=== PATIENT | male | born 1950 | race Caucasian/White ===

== ENCOUNTER 2019-02-28 16:28 | Observation (INO) ==
[2019-02-28 18:09] LABS: Basophils % 0.6 % (0.0-0.8); Eosinophils # 0.2 10*3/uL (0.0-0.87); Eosinophils % 2.5 % (0.00-10.9); Hematocrit 42.5 VOL% (42.0-52.0); Hemoglobin 14.1 GM/DL (14.0-18.0); Immature Granulocytes % 0.3 %; Immature Granulocytes Absolute 0.02 #; Lymphocytes # 1.4 10*3/uL (1.4-4.0); Mean Corpuscular HGB Conc 33.2 GM/DL (32-36); Mean Corpuscular Volume 97.7 FL (87-102); Mean Platelet Volume 10.2 FL (9.6-12.0); Neutrophils % 70.6 % (38.7-73.9); Platelet Count 183 T/CUMM (130-400); Red Blood Count 4.35 MC/CUMM (3.8-5.5); Red Cell Distribution Width 12.8 % (9.3-17.3); White Blood Count 7.3 T/CUMM (4-12)
[2019-02-28 18:19] LABS: PT Patient Result 11.2 SECS (9.6-12.2); Partial Thromboplastin Time 25.2 SECS (20.8-36.0)
[2019-02-28 18:32] LABS: Albumin 3.7 G/DL (3.4-5.0); Bilirubin,Total 1.3 MG/DL (0.2-1.0); Calcium 8.8 MG/DL (8.5-10.1); Osmolality,Calculated 282.4 MOS/KG (273-304)
[2019-02-28 18:56] LABS: Apearance,Urine CLEAR (Clear); Bilirubin,Urine Negative (Negative); Blood, Urine Negative (Negative); Glucose,Urine (UA) Negative (Negative); Ketones,Urine Negative (Negative); Mucus,Urine Occasional /LPF (Occasional); Nitrite,Urine Negative (Negative); Protein,Urine Negative; RBC,Urine 2 /HPF (0-4); Urine Color Straw (Yellow); Urine Urobilinogen < 2.0 EU/DL (0.2-1.0); WBC,Urine 1 /HPF (0-6)
[2019-02-28] MEDS ORDERED: LABETALOL 20 MG/4 ML SYRINGE IV PRN (19:38)
[2019-02-28] MEDS ORDERED: ACETAMINOPHEN 325 MG TABLET PO PRN (19:38)
[2019-02-28] MEDS ORDERED: ONDANSETRON 4 MG/2 ML VIAL IV PRN (19:38)
[2019-02-28] MEDS ORDERED: PNEUMOCOCCAL VACCINE (13 VALENT) 0.5 ML SYRINGE IM ONE (21:12)
[2019-02-28] MEDS ORDERED: INFLUENZA VIRUS VACCINE 0.5 ML SYRINGE IM ONE (21:12)
[2019-02-28] MEDS: ATORVASTATIN 40 MG TABLET PO SCH (21:40)
[2019-02-28 22:48] LABS: Barbiturates Screen,Urine Negative (Negative); Benzodiazepines Screen,Urine Negative (Negative); Cannabinoid Screen,Urine Negative (Negative); Opiate Screen,Urine Negative (Negative); Phencyclidine Screen,Urine Negative (Negative)
[2019-03-01 02:16] LABS: Basophils # 0.1 10*3/uL (0.0-0.2); Basophils % 0.7 % (0.0-0.8); Eosinophils # 0.2 10*3/uL (0.0-0.87); Eosinophils % 3.1 % (0.00-10.9); Hematocrit 41.9 VOL% (42.0-52.0); Hemoglobin 13.8 GM/DL (14.0-18.0); Immature Granulocytes % 0.1 %; Immature Granulocytes Absolute 0.01 #; Lymphocytes # 1.9 10*3/uL (1.4-4.0); Lymphocytes % 25.2 % (21.2-54.2); Mean Corpuscular HGB Conc 32.9 GM/DL (32-36); Mean Corpuscular Volume 98.1 FL (87-102); Mean Platelet Volume 10.1 FL (9.6-12.0); Monocytes % 8.1 % (1.7-12.7); Neutrophils % 62.8 % (38.7-73.9); Platelet Count 167 T/CUMM (130-400); Red Blood Count 4.27 MC/CUMM (3.8-5.5); Red Cell Distribution Width 12.9 % (9.3-17.3); White Blood Count 7.4 T/CUMM (4-12)
[2019-03-01 02:56] LABS: Calcium 8.4 MG/DL (8.5-10.1); Osmolality,Calculated 281.3 MOS/KG (273-304); Risk Ratio 2.1; Thyroid Stimulating Hormone 3.08 uIU/ml (0.358-3.74); VLDL CHOLESTEROL 15.8 MG/DL
[2019-03-01] MEDS ORDERED: POTASSIUM CHLORIDE 20 MEQ TABLET PO SCH (09:00)
[2019-03-01] MEDS ORDERED: FUROSEMIDE 20 MG TABLET PO SCH (09:00)
[2019-03-01] MEDS: carvediloL 3.125 MG TABLET PO SCH ×2 (10:09→17:55)
[2019-03-01] MEDS: PANTOPRAZOLE 40 MG TABLET PO SCH (10:09)
[2019-03-01] MEDS: ASPIRIN EC 81 MG TABLET PO SCH (10:09)
[2019-03-01] MEDS: CLOPIDOGREL 75 MG TABLET PO SCH (10:09)
[2019-03-01] MEDS: SPIRONOLACTONE 25 MG TABLET PO SCH (10:10)
[2019-03-01] MEDS: LOSARTAN 25 MG TABLET PO SCH (10:10)
[2019-03-01] MEDS: BISACODYL 5 MG TABLET PO SCH (10:17)
[2019-03-01] MEDS: ATORVASTATIN 40 MG TABLET PO SCH (20:37)
[2019-03-02 07:51] VITALS: BP 92/62
[2019-03-02] MEDS: carvediloL 3.125 MG TABLET PO SCH (08:32)
[2019-03-02] MEDS: ASPIRIN EC 81 MG TABLET PO SCH (08:32)
[2019-03-02] MEDS: LOSARTAN 25 MG TABLET PO SCH (08:32)
[2019-03-02] MEDS: PANTOPRAZOLE 40 MG TABLET PO SCH (08:33)
[2019-03-02] MEDS: SPIRONOLACTONE 25 MG TABLET PO SCH (08:33)
[2019-03-02] MEDS: CLOPIDOGREL 75 MG TABLET PO SCH (08:33)
[2019-03-02] MEDS: BISACODYL 5 MG TABLET PO SCH (08:44)
[2019-03-02] MEDS ORDERED: DOCUSATE SODIUM 100 MG CAPSULE PO SCH (09:00)
[2019-03-02] MEDS ORDERED: LISINOPRIL 2.5 MG TABLET PO SCH (21:00)
== END 2019-03-02 11:45 | disposition home or self-care (01) ==
LOC: N.EDINP 16:28 → N.ED 16:28 → SUPCPDRO 19:38 → N.4E 20:04
PROVIDERS: ADMIT Hospitalist; ATTEND Hospitalist